=== PATIENT | male | born 1970 | race Caucasian/White ===

== ENCOUNTER 2023-11-08 19:08 | Emergency (ER) | payer OTHER, SELFPAY ==
[2023-11-08 19:09] VITALS: BP 118/86; PULSE 88; RESP 20; TEMP 36.7; O2SAT 100
[2023-11-08] MEDS: TETANUS,DIPHTHERIA,AC PERTUSSIS ADULT 0.5 ML (ADACEL) IM (19:39)
[2023-11-08] MEDS: LIDOCAINE HCL 1% LOCAL INJ 10 ML VIAL INFILTRATE (19:39)
--- NOTE | 2023-11-08 19:42 | ED.WOUNDLAC ---
HPI - Wound/Laceration General Chief Complaint: Wound/Laceration Stated Complaint: left hand lac Time Seen by Provider: 11/08/23 19:10 Source: patient and family Mode of arrival: ambulatory Limitations: no limitations History of Present Illness HPI narrative: this is a 53-year-old male with no significant past medical history while cutting a zip tie slipped and accidentally cut the anterior left hand between the thumb and index finger about 3.5cm gaping laceration has good range of motion in his fingers no numbness or tingling. Onset (ago): hour(s) Extremity Location: Left: hand ( 3.5cm gaping laceration radial surface his) Place: home Patient tetanus UTD: No Context: accidental Associated symptoms: none Related Data Allergies Allergy/AdvReac Type Severity Reaction Status Date / Time azithromycin Allergy Unknown Rash Verified 02/27/19 08:59 Review of Systems Review of Systems: All systems reviewed & are unremarkable except as noted in HPI and below PMFSH Past Medical History Medical History Patient denies medical problems Exam Const: General: healthy appearing Nutritional Appearance: well nourished Orientation/consciousness: patient oriented x3 Skin: Wounds: wounds noted Neuro: General: patient oriented x3, moves all extremities and no meningeal signs Course Course Emergency Course: a sutures placed anterior left hand patient tolerated procedure well lidocaine was used patient was updated with his tetanus and triple antibiotic ointment was applied. Vital Signs Vital signs: Vital Signs Temperature 36.7 C 11/08/23 19:09 Pulse Rate 88 11/08/23 19:09 Respiratory Rate 11/08/23 19:09 Blood Pressure 118/86 11/08/23 19:09 Pulse Oximetry 100 11/08/23 19:09 Oxygen Delivery Room Air 11/08/23 19:09 Temperature 36.7 C 11/08/23 19:09 Pulse Rate 88 11/08/23 19:09 Respiratory Rate 11/08/23 19:09 Blood Pressure 118/86 11/08/23 19:09 Pulse Oximetry 100 11/08/23 19:09 Oxygen Delivery Room Air 11/08/23 19:09 Procedures Laceration Laceration 1: Date: 11/08/23 Time: 19:46 Site: hand Side (If applicable): left Size (cm): 3.5 Description: linear Depth: simple, single layer Local Anesthetic: lidocaine 1% Amount of anesthesia used (mL): 10 ====== Skin Level ====== Skin layer closed with: vicryl Size (cm): 3-0 Number of sutures: 8 Technique: simple, interrupted ====== Subcutaneous Layer ====== ====== Muscle Layer ====== ====== Tendon Layer ====== Critical Care Time Critical Care Time Critical Care Time: No Discharge Plan Discharge Clinical Impression: Laceration Patient Disposition: Home, Self-Care Condition: Stable Instructions: Antibiotic Form, Laceration (ED) Additional Instructions: Follow with Primary are urgent care for suture removal in 1 week can apply Neosporin daily x3 days. Follow-up/Referrals: Yonatan Merino, RT(R) [Primary Care Provider] - Time of Disposition: 19:47
[2023-11-08 19:55] VITALS: BP 120/74; PULSE 74; RESP 18; TEMP 36.6; O2SAT 99
== END 2023-11-08 19:55 | disposition home or self-care (01) ==
PROVIDERS: Emergency Provider Emergency Medicine
DX: S61.412A Laceration without foreign body of left hand, initial encounter (principal); Z23 Encounter for immunization; W26.8XXA Contact with other sharp object(s), not elsewhere classified, initial encounter
CPT/HCPCS: 12002; 90471; 90715; 99282

== ENCOUNTER 2024-10-21 15:43 | Outpatient (RCR) | payer BC, SELFPAY ==
--- NOTE | 2024-10-21 17:13 | PTOPEVAL1 ---
Assessment and note entered by Kate Pichardo DPT Evaluation Information Assessment Status Evaluation Diagnosis neck pain, L UE radiculopathy ICD-10 Condition Codes (PT) Radiculopathy, cervical M54.13 Other ICD-10 Condition Codes ( z98.1 PT) Onset 10/16/24 Subjective Information Patient reports he has a history of neck pain with ACDF C5-7. He reports the last month he has had increasing numbness and tingling down the L UE into the hand. He reports at times his hand is completely numb and will feel cold and discolored. He reports increase in symptoms with driving, sitting at his desk and sleeping. He reports relief when he holds his left hand over his head and while using heat. He is right handed Reported Pain Level Pain Score 0,1: Self Report Assessment PT Clinical Summary Mr. Williamson is a 54 year old male who presents to PT with cervical pain with radiating symptoms to L LE. He demonstrates tension at B upper traps, impaired posture and positive testing indicating possible TOS or cervical disc involvement. He would benefit from skilled PT to address impairments and return to PLOF. Plan of Care Interventions Electrical Stimulation,Gait Training,Hot Pack/Cold Pack,Manual Therapy,Neuro Re-education,Patient/ Caregiver Education,Therapeutic Activities, Therapeutic Exercise Other Interventions TPDN PT Services Indicated Yes Treatment Frequency and 2x weekly for 10 visits Duration These treatments will address the objective and functional deficits as defined above. The patient will be advanced safely and appropriately in order for the patient to progress towards his/her prior level of function. Additional exercises will be introduced and as well as a comprehensive home exercise program upon discharge, if needed, ?to ensure carryover of functional gains achieved in the clinic. This treatment plan has been reviewed and agreement upon by the patient.
--- NOTE | 2024-10-23 16:32 | PCPTNOTE ---
On 10/23/24, the student, [Delmi Alberto], provided care and completed [facility] documentation on this patient. I have reviewed the student's documentation and agree with the findings.
--- NOTE | 2024-11-04 11:29 | PCPTNOTE ---
Patient called & cancelled scheduled appointment this date due to not being able to make it in. -Rebekah Ramos, PT
--- NOTE | 2024-11-26 10:47 | OPREHPOC ---
Outpatient Therapy Plan of Care This is a Multidisciplinary Plan of Care that may contain components documented by all disciplines (PT, OT, and ST.) PT Problem 1 PT Problem #1 Knowledge Deficit PT Goal 1 Goal / Goal Update Patient to demonstrate independence with HEP Target Visit 5 Progress Met PT Problem 2 PT Problem #2 Pain PT Goal 1 Goal / Goal Update 1. patient to report highest pain at 2/10 2. patient to report ability to sleep with no disturbance due to L UE discomfort Target Visit 14 Progress Not Met PT Problem 3 PT Problem #3 Impaired Functional Mobility PT Goal 1 Goal / Goal Update 1. Patient to improve NDI by 10% - not met 2. Patient to report ability to drive for >30 minutes with no radiating symptoms to L UE - met 3. Patient to report ability to lift 20# overhead with no cervical or L UE pain - not met 4. Patent to report ability to complete house hold tasks at PLOF - not met Target Visit 14 Progress Partially Met
--- NOTE | 2024-11-26 10:47 | PTOPREEVAL ---
Assessment and note entered by JT File, PT Evaluation Information Assessment Status Re-evaluation Diagnosis neck pain, L UE radiculopathy ICD-10 Condition Codes (PT) Radiculopathy, cervical M54.13 Other ICD-10 Condition Codes ( z98.1 PT) Onset 10/16/24 Subjective Information Pt reports that he has gotten a lot better since starting therapy. Pt reports that he has been doing his exercises at home, and the stretching helps the most. Pt reports that he no longer has constant pain and numbness down the L arm. 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 Pt reports that he is still waking up from the arm, but it isn't that bad. pt reports that he can drive an hour without an increase in symptoms. Pt reports that he is supposed to schedule and MRI of his neck Reported Pain Level Pain Score 1,1: Self Report Assessment PT Clinical Summary is on his 10th skilled PT visit for cervical pain and L UE radiculopathy. 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 Pt is scheduling an MRI for his cervical spine. Continued Skilled PT is advised to continue to improve symptoms and work on pts deficits/ functional goals to improve quality of life/ return to PLOF. Plan of Care Interventions Electrical Stimulation,Gait Training,Hot Pack/Cold Pack,Manual Therapy,Neuro Re-education,Patient/ Caregiver Education,Therapeutic Activities, Therapeutic Exercise Other Interventions TPDN PT Services Indicated Yes Treatment Frequency and 1x a week for 4 weeks Duration These treatments will address the objective and functional deficits as defined above. The patient will be advanced safely and appropriately in order for the patient to progress towards his/her prior level of function. Additional exercises will be introduced and as well as a comprehensive home exercise program upon discharge, if needed, ?to ensure carryover of functional gains achieved in the clinic. This treatment plan has been reviewed and agreement upon by the patient.
--- NOTE | 2024-11-26 11:19 | PCPTNOTE ---
On 11/25/24, the student, [Delmi Alberto], provided care and completed [facility] documentation on this patient. I have reviewed the student's documentation and agree with the findings.
== END 2025-01-19 23:59 | disposition home or self-care (01) ==
LOC: CHSPT 15:43
PROVIDERS: Visit Provider Nurse Practitioner Adult Health
DX: M54.13 Radiculopathy, cervicothoracic region (principal); Z98.1 Arthrodesis status
CPT/HCPCS: 97014; 97110; 97112; 97140; 97161; G0283